=== PATIENT | male | born 1965 | race Caucasian/White ===

== ENCOUNTER 2025-10-16 13:24 | Emergency (ER) | payer BC, OTHER ==
[~2025-10-16] VITALS: Ht 182.9 cm; Wt 116.8 kg
[~2025-10-16 13:24] MED LIST: ESZO3TAB54; LEVO75TA6; SIMV20TA20
[2025-10-16 13:26] VITALS: BP 178/102; PULSE 69; RESP 16; TEMP 98.1; O2SAT 96
[2025-10-16] MEDS ORDERED: CEPH500C PO (14:06)
--- NOTE | 2025-10-16 14:07 | ED.PDOC ---
History of Present Illness(SKN HPI Comments A 60 YEAR OLD MALE PRESENTS TO THE ED WITH COMPLAINT OF REDNESS AND SWELLING OF LEFT THUMB. PATIENT STATES HE HAS BEEN EXPERIENCING REDNESS, SWELLING, AND PAIN IN HIS LEFT THUMB FOR THE PAST 6 DAYS. PATIENT REPORTS HIS SYMPTOMS INITIALLY STARTED AFTER BITING HIS FINGER NAILS. PATIENT DENIES FEVER, CHILLS, SHORTNESS OF BREATH, CHEST PAIN, ABDOMINAL PAIN, NAUSEA, VOMITING, HEADACHE, OR OTHER COMPLAINTS. NO OTHER SYMPTOMS OR MODIFYING FACTORS AT THIS TIME. PATIENT IS ALERT, ORIENTED X 4, AND HAS STEADY GAIT. Chief Complaint: Upper Extremity Time Seen by MD: 13:31 Primary Care Provider: KEO History of Present Illness: Nurses Notes, Medications, Allergies Allergies: Coded Allergies: NO KNOWN ALLERGIES (Unverified , 11/27/12) Home Meds Active Scripts Cephalexin Monohydrate (Cephalexin) 500 Mg Cap, 2 CAP PO BID, #32 CAP Prov:ALCON COLLAZO 10/16/25 Reported Medications [Lunesta3 Mg] (Lunesta) 3 MG TAB No Conflict Check, MG 11/27/12 [[id number] Mg] (Simvastatin) 20 MG TAB No Conflict Check, MG 11/27/12 [Zlgqoeiaqvlvd50 Mcg] (Levothyroxine Sodium) 75 MCG TAB No Conflict Check, MCG 11/27/12 Information Source: Patient Mode of Arrival: Ambulatory Severity: Moderate Timing: Days Duration: Since onset, Days Prehospital treatment: None Location: Other (LEFT THUMB) Mechanism: Spontaneous Onset Occurence: Indoors Object: None Condition of Object: None Retained Foreign Body: No Wound Type: Other (PARONYCHIA) Immunization Status of Animal: NA Tetanus: Unknown History of: None Associated Signs and Symptoms: Redness, Swelling, Pain Past Medical History PAST MEDICAL HISTORY: Denies Surgical History: Denies all surgeries Family History Family History: Reviewed,noncontributory to illness Social History Smoker: Non-Smoker Alcohol: Denies ETOH Use Drugs: Denies Drug Use Lives In: Home Constitutional: denies: chills, diaphoresis, fatigue, fever, malaise, sweats, weakness, others EENTM: denies: blurred vision, double vision, ear bleeding, ear discharge, ear drainage, ear pain, ear ringing, eye pain, eye redness, hearing loss, mouth pain, mouth swelling, nasal discharge, nose bleeding, nose congestion, nose pain, photophobia, tearing, throat pain, throat swelling, voice changes, others Respiratory: denies: cough, hemoptysis, orthopnea, SOB at rest, shortness of breath, SOB with excertion, stridor, wheezing, others Cardiovascular: denies: chest pain, dizzy spells, diaphoresis, Dyspnea on exertion, edema, irregular heart beat, left arm pain, lightheadedness, palpitations, PND, syncope, others Gastrointestinal: denies: abdomen distended, abdominal pain, blood streaked bowels, constipated, diarrhea, dysphagia, difficulty swallowing, hematemesis, melena, nausea, poor appetite, poor fluid intake, rectal bleeding, rectal pain, vomiting, others Genitourinary: denies: burning, dysuria, flank pain, frequency, hematuria, incontinence, penile discharge, penile sore, pain, testicle pain, testicle swelling, urgency, others Neurological: denies: dizziness, fainting, headache, left sided numbness, left sided weakness, numbness, paresthesia, pre-existing deficit, right sided numbn ess, right sided weakness, seizure, speech problems, tingling, tremors, weakness, others Musculoskeletal: denies: back pain, gout, joint pain, joint swelling, muscle pain, muscle stiffness, neck pain, others Integumetry: reports: wounds, others (PARONYCHIA OF LEFT THUMB); denies: bruises, change in color, change in hair/nails, dryness, laceration, lesions, lumps, rash Allergic/Immunocompromised: denies: Difficulty Healing, Frequent Infections, Hives, Itching, others Hematologic/Lymphatic: denies: anemia, blood clots, easy bleeding, easy bruising, swollen glands, others Endocrine: denies: excessive hunger, excessive sweating, excessive thirst, excessive urination, flushing, intolerance to cold, intolerance to heat, unexplained weight gain, unexplained weight loss, others Psychiatric: denies: anxiety, bipolar disorder, depression, hopeless, panic disorder, schizophrenia, sleepless, suicidal, others All Other Systems: Reviewed and Negative Physical Exam General Appearance: No Apparent Distress, Normal HEENT: Normal ENT Inspection, PERRL/EOMI, Pharynx Normal, TMs Normal Neck: Full Range of Motion, Non-Tender, Normal, Normal Inspection Respiratory: Chest Non-Tender, Lungs Clear, No Accessory Muscle Use, No Respiratory Distress, Normal Breath Sounds Cardiovascular: No Edema, No JVD, No Murmur, No Gallop, Normal Peripheral Pulses, Regular Rate/Rhythm Breast Exam: Deferred Gastrointestinal: No Organomegaly, Non Tender, No Pulsatile Mass, Normal Bowel Sounds, Soft Genitalia: Deferred Pelvic: Deferred Rectal: Deferred Extremities: No calf tenderness, Normal capillary refill, Normal range of motion, No pedal edema, Tender (WITH REDNESS AND SWELLING ON LEFT THUMB, +PHARONYCHIA. ) Musculoskeletal : Apperance: Normal Neurologic: Alert, manager er II-XII nml as Tested, No Motor Deficits, Normal Affect, Normal Mood, No Sensory Deficits Cerebellar Function: Normal Reflexes: Normal Skin: Dry, Normal Color, Warm, Wounds (LOCALIZED REDNESS, SWELLING AND MILD PUS DRAINAGE ON LEFT THUMB, PARONYCHIA. ) Peripheral Pulses: 2+ carotid (R), 2+ carotid (L) Lymphatic: No Adenopathy Was a procedure done? Was a procedure done?: Yes Sedation Sedation?: No Incision and Drainage Incision and Drainage: Other (PARONYCHIA) Location LEFT THUMB Preparation: Betadine, Saline Incision and Wound: Pus, Blood, Irrigated Informed consent obtained: No Risks/benefits/alt described: Yes Notes 18 GAUGE NEEDLE WAS USED TO POKE A HOLE INTO THE PATIENT'S PARONYCHIA ON HIS LEFT THUMB. PUS AND BLOOD WAS DRAINED FROM THE PATIENT'S LEFT THUMB. SWELLING AND PAIN WAS NOTED TO HAVE DECREASED. PATIENT'S WOUND WAS THEN IRRIGATED WITH NORMAL SALINE WRAPPED WITH STERILE GAUZE. PATIENT TOLERATED WELL. Differential Diagnosis (INTG) Differential Diagnosis: N/A Differential Diagnosis: Abscess, Atopic dermatitis, Cellulitis, Contact Dermatitis, Erysipelas, Other (PARONYCHIA, SOFT TISSUE INFECTION) Differential Diagnosis: N/A Abscess: N/A Differential Diagnosis: N/A X-Ray, Labs, Meds, VS Vital Signs Date Time Temp Pulse Resp B/P (MAP) Pulse Ox O2 Delivery O2 Flow Rate FiO2 10/16/25 13:26 98.1 69 16 178/102 96 98.1 X-Ray, Labs, Meds, VS Comment EXTERNAL MEDICAL RECORDS REVIEWED: [NONE] INDEPENDENT HISTORIANS: [NONE] SOCIAL DETERMINANTS OF HEALTH: [NONE] LABS ORDERED: NONE REVIEWED AND INTERPRETED RESULTS: NONE IMAGING ORDERED: NONE TREATMENTS ORDERED: INCISION AND DRAINAGE, SEE PROCEDURE SECTION. PROCEDURES PERFORMED: INCISION AND DRAINAGE, SEE PROCEDURE SECTION. CRITICAL CARE TIME: NONE I HAVE DISCUSSED THE PATIENT WITH THE ATTENDING PHYSICIAN DR. FRANKLIN AND HE AGREES WITH THE PATIENT'S PLAN OF CARE AND DISPOSITION. BASED ON HISTORY OF PRESENT ILLNESS, AND PHYSICAL EXAM, PATIENT WILL BE DISCHARGED HOME. DISCUSSED PLAN FOR DISCHARGE HOME WITH RX [[facility]FLEX]. MEDICATION WARNINGS GIVEN. SHARED DECISION MAKING: PATIENT INSTRUCTED TO FOLLOW UP WITH PRIMARY CARE PROVIDER IN 1-2 DAYS FOR RE-EVALUATION OF SYMPTOMS. PATIENT VERBALIZES UNDE RSTANDING TO RETURN TO ED FOR NEW OR WORSENING SYMPTOMS OR IF FOLLOW UP WITH PCP CANNOT BE OBTAINED. PATIENT FEELS COMFORTABLE GOING HOME AT THIS TIME. ALL QUESTIONS ADDRESSED AT TIME OF DISCHARGE. Time of 1ST Reevaluation: 14:22 Reevaluation 1ST: Improved Patient Education/Counseling: Diagnosis, Treatment, Need For Follow Up Family Education/Counseling: Diagnosis, Treatment, Need For Follow Up Medical Screening: No EMC Exist At This Time SEPSIS Sepsis Screen Date sepsis recognized/suspect: Oct 16, 2025 Time Sepsis recognized/suspect: 1328 Recent Procedure: No On Antibiotic Therapy: No Respiratory Rate >20: No Heart Rate >90: No Temp<36 C (96.8 F) or >38.3 C: No SBP <90 or MAP <65 mmHG: No New Acute Mental Status Change: No Is the patient on CPAP, BIPAP,: No Vital Signs Date Time Temp Pulse Resp B/P (MAP) Pulse Ox O2 Delivery O2 Flow Rate FiO2 10/16/25 13:26 98.1 69 16 178/102 96 98.1 Departure 1 Departure Time of Disposition: 14:22 Impression: Primary Impression: Paronychia of left thumb Disposition: 01 HOME / SELF CARE / HOMELESS Condition: Stable Additional Instructions: FOLLOW-UP WITH PCP IN 1 TO 2 DAYS. TAKE MEDICATIONS PRESCRIBED. RETURN TO ED FOR ANY NEW OR WORSENING SYMPTOMS. e-Prescriptions Cephalexin Monohydrate (Cephalexin) 500 Mg Cap 2 CAP PO BID, #32 CAP Prov: ALCON COLLAZO 10/16/25 Discharged With: Self Critical Care Note Critical Care Time?: No Stability Stability form required: No I personally scribed for ALCON COLLAZO ([email or web address]) on 10/16/25 at 14:07. Electronically submitted by Ford Mcarthur ([email or web address]). ALCON COLLAZO Oct 16, 2025 14:07
== END 2025-10-16 14:48 | disposition home or self-care (01) ==
LOC: ER 13:24
DX: L03.012 Cellulitis of left finger (principal); Z79.899 Other long term (current) drug therapy
CPT/HCPCS: 10060